=== PATIENT | female | born 1960 | race Caucasian/White ===

== ENCOUNTER 2021-09-18 19:18 | Inpatient (IN) ==
[2021-09-18 20:50] LABS: Red Blood Count 2.63 M/mcL (3.82-4.97)
[2021-09-18 20:52] LABS: Basophils # 0.1 K/mcL (0.0-0.2); Basophils % 0.6 %; Eosinophils # 0.1 K/mcL (0.0-0.6); Immature Granulocytes % 0.6 % (0-4); Lymphocytes # 1.6 K/mcL (0.6-4.6); Lymphocytes % 18.5 %; Mean Corpuscular HGB Conc 28.1 g/dL (31.6-35.5); Mean Corpuscular Hemoglobin 22.4 pg (28.0-33.3); Mean Corpuscular Volume 79.8 fL (83.0-100.0); Mean Platelet Volume 9.5 fL (9.4-12.4); Monocytes # 1.1 K/mcL (0.0-1.3); Monocytes % 12.7 %; Nucleated Red Blood Cells 1.1 /100 WBC (0); Platelet Count 269 K/mcL (140-400); Red Cell Distribution Width 17.2 % (11.5-14.5); Segmented Neutrophils % 66.6 %; White Blood Count 8.8 K/mcL (4.3-11.1)
[2021-09-18 20:54] LABS: Activated Partial Thrombo Time 50.9 Seconds (26.0-36.0)
[2021-09-18 20:55] LABS: Neutrophils # 5.9 K/mcL (1.6-8.9)
[2021-09-18 20:56] LABS: INR 6.1; Prothrombin Time 67.1 Seconds (9.4-12.1)
[2021-09-18 20:57] LABS: Hemoglobin 5.9 g/dL (11.5-15.4)
[2021-09-18 21:05] LABS: Potassium 4.3 mEq/L (3.5-5.1)
[2021-09-18] MEDS ORDERED: 0.9 % Sodium Chloride 500 ML IVC ONE (21:15)
[2021-09-18] MEDS ORDERED: Pantoprazole 40 MG VIAL IVP ONE ×2 (21:16→22:46)
[2021-09-18] MEDS ORDERED: 0.9 % Sodium Chloride 500 ML ONE (21:26)
[2021-09-18 21:27] LABS: Hypochromasia Present (Not Present); Microcytosis Present (Not Present); Platelet Estimate Normal (Normal)
[2021-09-18 21:35] LABS: Albumin 3.4 g/dL (3.5-5.7); Bilirubin,Indirect 1.4 mg/dL (0.0-1.0); Bilirubin,Total 2.4 mg/dL (0.3-1.0); Globulin 3.5 g/dL (2.4-3.5); Total Protein 6.9 g/dL (6.4-8.9)
[2021-09-18] MEDS ORDERED: Ondansetron 4 MG/2 ML VIAL IVP PRN (22:21)
[2021-09-18] MEDS ORDERED: Naloxone 0.4 MG/ML INJ IVP PRN (22:21)
[2021-09-18] MEDS ORDERED: D5% in Water 1,000 ML IVC PRN (22:30)
[2021-09-18] MEDS ORDERED: Dextrose Gel 15 GM/37.5 ML TUBE PO PRN ×2 (22:30)
[2021-09-18] MEDS: Pantoprazole 40 MG in 0.9 % Sodium Chloride Mini Bag 100 ML IVC SCH (23:00)
[2021-09-18] MEDS: Insulin LISPRO 300 UNITS/3 ML VIAL SUBQ SCH (23:01)
[2021-09-18] MEDS: *HR* Dextrose 50 % in Water (Syg) 50 ML SYRINGE IVP PRN ×2 (23:01→23:57)
[2021-09-18 23:36] LABS: Bilirubin,Urine Negative (Negative); Blood,Urine Negative (Negative); Clarity,Urine Clear (Clear); Color,Urine Light-Yellow (Yellow); Glucose,Urine (UA) Normal (Normal); Ketones,Urine Negative (Negative); Leukocyte Esterase,Urine Negative (Negative); Nitrite,Urine Negative (Negative); Protein,Urine Negative (Neg-Trace); Specific Gravity,Urine 1.012 (1.010-1.025); Urobilinogen,Urine Normal (Normal)
[2021-09-19] MEDS ORDERED: Ipratropium/Albuterol Neb 3 ML IH PRN (00:03)
[2021-09-19] MEDS: *HR* Dextrose 50 % in Water (Syg) 50 ML SYRINGE IVP PRN (01:23)
[2021-09-19] MEDS: Acetaminophen 325 MG TABLET PO PRN ×2 (01:35→19:54)
[2021-09-19 02:06] LABS: Activated Partial Thrombo Time 44.7 Seconds (26.0-36.0)
[2021-09-19 02:14] LABS: INR 4.6; Prothrombin Time 50.6 Seconds (9.4-12.1)
[2021-09-19 02:18] LABS: % Iron Saturation 38 % (15-50); Alanine Aminotransferase 5 Units/L (7-52); Albumin 3.1 g/dL (3.5-5.7); Albumin/Globulin Ratio 1.1 (1.1-2.2); Alkaline Phosphatase 124 Units/L (34-104); Aspartate Amino Transferase 15 Units/L (13-39); BUN/Creatinine Ratio 8 (6-26); Bilirubin,Direct 0.3 mg/dL (0.0-0.2); Bilirubin,Indirect 0.6 mg/dL (0.0-1.0); Bilirubin,Total 0.9 mg/dL (0.3-1.0); Blood Urea Nitrogen 23 mg/dL (8-23); Calcium 8.4 mg/dL (8.6-10.3); Carbon Dioxide 30 mEq/L (23-29); Chloride 100 mEq/L (98-107); Globulin 2.7 g/dL (2.4-3.5); Glucose 97 mg/dL (70-105); Iron 95 mcg/dL (50-170); Magnesium 1.8 mg/dL (1.6-2.6); Osmolality,Calculated 288 (280-300); Phosphorous 3.2 mg/dL (2.7-4.5); Potassium 4.2 mEq/L (3.5-5.1); Sodium 137 mEq/L (136-145); Total Protein 5.8 g/dL (6.4-8.9); Transferrin 179 mg/dL (203-362); eGFR For African Americans 19 (> 60); eGFR For Non-African Americans 16 (> 60)
[2021-09-19 02:30] LABS: Thyroid Stimulating Hormone 4.169 mcIU/mL (0.340-5.600)
[2021-09-19] MEDS ORDERED: Furosemide 40 MG/4 ML VIAL IVP ONE (02:49)
[2021-09-19 03:39] LABS: Ferritin > 1500 ng/mL (10-120)
[2021-09-19 03:39] LABS: Folate > 22.3 ng/mL (3.0-16.0); Vitamin B12 1337 pg/mL (250-1100)
[2021-09-19] MEDS: Pantoprazole 40 MG in 0.9 % Sodium Chloride Mini Bag 100 ML IVC SCH ×4 (04:17→19:45)
[2021-09-19 05:46] LABS: Eosinophils % 1.1 %; Hematocrit 21.7 % (35.3-44.9); Mean Corpuscular Volume 79.2 fL (83.0-100.0); Red Blood Count 2.74 M/mcL (3.82-4.97); Red Cell Distribution Width 16.7 % (11.5-14.5)
[2021-09-19 05:48] LABS: Basophils % 0.6 %; Eosinophils # 0.1 K/mcL (0.0-0.6); Hemoglobin 6.4 g/dL (11.5-15.4); Immature Granulocytes % 0.6 % (0-4); Lymphocytes # 1.3 K/mcL (0.6-4.6); Lymphocytes % 21.2 %; Mean Corpuscular HGB Conc 29.5 g/dL (31.6-35.5); Mean Corpuscular Hemoglobin 23.4 pg (28.0-33.3); Mean Platelet Volume 9.8 fL (9.4-12.4); Monocytes # 0.8 K/mcL (0.0-1.3); Monocytes % 12.8 %; Nucleated Red Blood Cells 1.3 /100 WBC (0); Platelet Count 207 K/mcL (140-400); Segmented Neutrophils % 63.7 %; White Blood Count 6.2 K/mcL (4.3-11.1)
[2021-09-19] MEDS ORDERED: 0.9 % Sodium Chloride 250 ML ONE (09:35)
[2021-09-19] MEDS: 0.9 % Sodium Chloride 1,000 ML IVC SCH ×2 (09:47→19:45)
[2021-09-19] MEDS: Insulin LISPRO 300 UNITS/3 ML VIAL SUBQ SCH ×3 (09:57→18:04)
[2021-09-19 15:15] LABS: Hematocrit 24.4 % (35.3-44.9)
[2021-09-19 15:18] LABS: Calcium 8.4 mg/dL (8.6-10.3); Potassium 3.6 mEq/L (3.5-5.1)
[2021-09-19] MEDS ORDERED: carvediloL 6.25 MG TABLET PO SCH (21:00)
[2021-09-20] MEDS: Pantoprazole 40 MG in 0.9 % Sodium Chloride Mini Bag 100 ML IVC SCH ×3 (00:23→12:28)
[2021-09-20] MEDS: Insulin LISPRO 300 UNITS/3 ML VIAL SUBQ SCH ×3 (06:50→15:44)
[2021-09-20 06:54] LABS: Basophils # 0.1 K/mcL (0.0-0.2); Basophils % 0.8 %; Eosinophils # 0.2 K/mcL (0.0-0.6); Eosinophils % 2.6 %; Hematocrit 25.1 % (35.3-44.9); Hemoglobin 7.3 g/dL (11.5-15.4); Immature Granulocytes % 0.3 % (0-4); Lymphocytes # 1.3 K/mcL (0.6-4.6); Lymphocytes % 21.9 %; Mean Corpuscular HGB Conc 29.1 g/dL (31.6-35.5); Mean Corpuscular Hemoglobin 23.8 pg (28.0-33.3); Mean Corpuscular Volume 81.8 fL (83.0-100.0); Mean Platelet Volume 9.6 fL (9.4-12.4); Monocytes # 0.7 K/mcL (0.0-1.3); Neutrophils # 3.8 K/mcL (1.6-8.9); Platelet Count 192 K/mcL (140-400); Red Blood Count 3.07 M/mcL (3.82-4.97); Red Cell Distribution Width 17.5 % (11.5-14.5); Segmented Neutrophils % 63.4 %; White Blood Count 6.1 K/mcL (4.3-11.1)
[2021-09-20 07:07] LABS: INR 1.8; Prothrombin Time 20.5 Seconds (9.4-12.1)
[2021-09-20 07:36] LABS: Calcium 8.3 mg/dL (8.6-10.3); Potassium 3.6 mEq/L (3.5-5.1)
[2021-09-20] MEDS: Folic Acid 1 MG TABLET PO SCH (08:05)
[2021-09-20] MEDS ORDERED: Lidocaine -MPF 2% 2 ML VIAL ONE (10:27)
[2021-09-20] MEDS ORDERED: *HR* Propofol 200 MG/20 ML VIAL IVP ONE (10:27)
[2021-09-20] MEDS ORDERED: Ketamine *HR* 500 MG/10 ML MDV ONE (10:29)
[2021-09-20] MEDS ORDERED: EPHEDrine 50 MG/ML VIAL ONE (11:23)
[2021-09-20 18:11] LABS: Hematocrit 26.7 % (35.3-44.9); Hemoglobin 7.6 g/dL (11.5-15.4)
[2021-09-21] MEDS: Acetaminophen 325 MG TABLET PO PRN (01:40)
[2021-09-21 06:47] LABS: Hematocrit 25.4 % (35.3-44.9)
[2021-09-21 06:48] LABS: Hemoglobin 7.2 g/dL (11.5-15.4); Mean Corpuscular HGB Conc 28.3 g/dL (31.6-35.5); Mean Corpuscular Hemoglobin 23.3 pg (28.0-33.3); Mean Corpuscular Volume 82.2 fL (83.0-100.0); Platelet Count 193 K/mcL (140-400); Red Blood Count 3.09 M/mcL (3.82-4.97); Red Cell Distribution Width 18.1 % (11.5-14.5); White Blood Count 6.9 K/mcL (4.3-11.1)
[2021-09-21 07:30] LABS: Calcium 8.2 mg/dL (8.6-10.3); Magnesium 2.3 mg/dL (1.6-2.6); Potassium 3.6 mEq/L (3.5-5.1)
[2021-09-21] MEDS: Insulin LISPRO 300 UNITS/3 ML VIAL SUBQ SCH ×3 (08:01→17:23)
[2021-09-21] MEDS: Folic Acid 1 MG TABLET PO SCH (09:20)
[2021-09-22 05:46] LABS: Mean Platelet Volume 9.4 fL (9.4-12.4); Red Blood Count 3.32 M/mcL (3.82-4.97); Red Cell Distribution Width 18.1 % (11.5-14.5)
[2021-09-22 05:47] LABS: Hematocrit 27.3 % (35.3-44.9); Hemoglobin 7.7 g/dL (11.5-15.4); Mean Corpuscular HGB Conc 28.2 g/dL (31.6-35.5); Mean Corpuscular Hemoglobin 23.2 pg (28.0-33.3); Mean Corpuscular Volume 82.2 fL (83.0-100.0); Platelet Count 210 K/mcL (140-400); White Blood Count 6.4 K/mcL (4.3-11.1)
[2021-09-22 05:53] LABS: INR 1.4; Prothrombin Time 16.1 Seconds (9.4-12.1)
[2021-09-22 06:15] LABS: BUN/Creatinine Ratio 18 (6-26); Blood Urea Nitrogen 18 mg/dL (8-23); Calcium 8.7 mg/dL (8.6-10.3); Carbon Dioxide 23 mEq/L (23-29); Chloride 102 mEq/L (98-107); Glucose 152 mg/dL (70-105); Osmolality,Calculated 277 (280-300); Potassium 4.1 mEq/L (3.5-5.1); Sodium 131 mEq/L (136-145); eGFR For African Americans > 60 (> 60); eGFR For Non-African Americans 55 (> 60)
[2021-09-22] MEDS: Insulin LISPRO 300 UNITS/3 ML VIAL SUBQ SCH ×3 (07:52→18:02)
[2021-09-22] MEDS: Folic Acid 1 MG TABLET PO SCH (12:36)
[2021-09-23] MEDS: Insulin LISPRO 300 UNITS/3 ML VIAL SUBQ SCH ×3 (07:50→16:55)
[2021-09-23] MEDS: Folic Acid 1 MG TABLET PO SCH (07:51)
[2021-09-23 10:34] LABS: Hematocrit 28.6 % (35.3-44.9); Hemoglobin 8.1 g/dL (11.5-15.4); Mean Corpuscular HGB Conc 28.3 g/dL (31.6-35.5); Mean Corpuscular Hemoglobin 23.2 pg (28.0-33.3); Mean Corpuscular Volume 81.9 fL (83.0-100.0); Platelet Count 202 K/mcL (140-400); Red Blood Count 3.49 M/mcL (3.82-4.97); Red Cell Distribution Width 17.9 % (11.5-14.5); White Blood Count 6.4 K/mcL (4.3-11.1)
[2021-09-23 11:37] LABS: BUN/Creatinine Ratio 17 (6-26); Blood Urea Nitrogen 17 mg/dL (8-23); Calcium 8.6 mg/dL (8.6-10.3); Carbon Dioxide 19 mEq/L (23-29); Chloride 104 mEq/L (98-107); Glucose 173 mg/dL (70-105); Osmolality,Calculated 276 (280-300); Potassium 5.5 mEq/L (3.5-5.1); Sodium 130 mEq/L (136-145); eGFR For African Americans > 60 (> 60); eGFR For Non-African Americans 55 (> 60)
[2021-09-23] MEDS ORDERED: 0.9 % Sodium Chloride 1,000 ML IVC SCH (11:45)
[2021-09-23] MEDS: *HR* Rivaroxaban 10 MG TABLET PO SCH (16:55)
[2021-09-23 18:24] LABS: BUN/Creatinine Ratio 18 (6-26); Blood Urea Nitrogen 18 mg/dL (8-23); Calcium 8.5 mg/dL (8.6-10.3); Carbon Dioxide 17 mEq/L (23-29); Chloride 106 mEq/L (98-107); Glucose 183 mg/dL (70-105); Osmolality,Calculated 277 (280-300); Sodium 130 mEq/L (136-145); eGFR For African Americans > 60 (> 60); eGFR For Non-African Americans 55 (> 60)
[2021-09-24] MEDS: Acetaminophen 325 MG TABLET PO PRN (00:54)
[2021-09-24 04:55] LABS: Hematocrit 27.4 % (35.3-44.9); Hemoglobin 7.7 g/dL (11.5-15.4); Mean Corpuscular HGB Conc 28.1 g/dL (31.6-35.5); Mean Corpuscular Hemoglobin 23.3 pg (28.0-33.3); Mean Corpuscular Volume 82.8 fL (83.0-100.0); Mean Platelet Volume 10.6 fL (9.4-12.4); Platelet Count 121 K/mcL (140-400); Red Blood Count 3.31 M/mcL (3.82-4.97); White Blood Count 5.8 K/mcL (4.3-11.1)
[2021-09-24 07:49] LABS: BUN/Creatinine Ratio 16 (6-26); Blood Urea Nitrogen 16 mg/dL (8-23); Calcium 8.5 mg/dL (8.6-10.3); Carbon Dioxide 22 mEq/L (23-29); Chloride 102 mEq/L (98-107); Glucose 193 mg/dL (70-105); Osmolality,Calculated 272 (280-300); Potassium 5.3 mEq/L (3.5-5.1); Sodium 128 mEq/L (136-145); eGFR For African Americans > 60 (> 60); eGFR For Non-African Americans 58 (> 60)
[2021-09-24] MEDS ORDERED: Furosemide 20 MG/2 ML VIAL IVP ONE (07:52)
[2021-09-24] MEDS ORDERED: Furosemide 20 MG TABLET PO ONE ×2 (07:53→17:00)
[2021-09-24] MEDS: Folic Acid 1 MG TABLET PO SCH (08:31)
[2021-09-24] MEDS: Insulin LISPRO 300 UNITS/3 ML VIAL SUBQ SCH ×3 (08:31→17:25)
[2021-09-24 14:42] LABS: BUN/Creatinine Ratio 16 (6-26); Blood Urea Nitrogen 16 mg/dL (8-23); Calcium 8.3 mg/dL (8.6-10.3); Carbon Dioxide 19 mEq/L (23-29); Chloride 106 mEq/L (98-107); Glucose 182 mg/dL (70-105); Osmolality,Calculated 276 (280-300); Potassium 5.5 mEq/L (3.5-5.1); Sodium 130 mEq/L (136-145); eGFR For African Americans > 60 (> 60); eGFR For Non-African Americans 54 (> 60)
[2021-09-24] MEDS ORDERED: SODIUM ZIRCONIUM CYCLOSILICATE 5 GM POWD.PACK PO ONE (15:13)
[2021-09-24] MEDS: *HR* Rivaroxaban 10 MG TABLET PO SCH (16:12)
[2021-09-24 20:58] LABS: BUN/Creatinine Ratio 16 (6-26); Blood Urea Nitrogen 16 mg/dL (8-23); Calcium 8.3 mg/dL (8.6-10.3); Carbon Dioxide 22 mEq/L (23-29); Chloride 102 mEq/L (98-107); Glucose 187 mg/dL (70-105); Osmolality,Calculated 276 (280-300); Potassium 4.6 mEq/L (3.5-5.1); Sodium 130 mEq/L (136-145); eGFR For African Americans > 60 (> 60); eGFR For Non-African Americans 58 (> 60)
[2021-09-25] MEDS ORDERED: tiZANidine 4 MG TABLET PO ONE (01:54)
[2021-09-25 05:59] LABS: Hematocrit 24.5 % (35.3-44.9); Hemoglobin 6.9 g/dL (11.5-15.4); Mean Corpuscular HGB Conc 28.2 g/dL (31.6-35.5); Mean Corpuscular Hemoglobin 23.2 pg (28.0-33.3); Mean Corpuscular Volume 82.2 fL (83.0-100.0); Platelet Count 175 K/mcL (140-400); Red Blood Count 2.98 M/mcL (3.82-4.97); Red Cell Distribution Width 17.6 % (11.5-14.5); White Blood Count 5.7 K/mcL (4.3-11.1)
[2021-09-25 06:24] LABS: Albumin 3.1 g/dL (3.5-5.7); BUN/Creatinine Ratio 18 (6-26); Blood Urea Nitrogen 16 mg/dL (8-23); Calcium 8.1 mg/dL (8.6-10.3); Carbon Dioxide 20 mEq/L (23-29); Chloride 103 mEq/L (98-107); Glucose 222 mg/dL (70-105); Osmolality,Calculated 274 (280-300); Potassium 5.1 mEq/L (3.5-5.1); Sodium 128 mEq/L (136-145); eGFR For African Americans > 60 (> 60); eGFR For Non-African Americans > 60 (> 60)
[2021-09-25] MEDS: Folic Acid 1 MG TABLET PO SCH (07:20)
[2021-09-25] MEDS: Insulin LISPRO 300 UNITS/3 ML VIAL SUBQ SCH ×2 (07:20→12:07)
[2021-09-25] MEDS ORDERED: 0.9 % Sodium Chloride 250 ML IVC SCH (07:45)
[2021-09-25] MEDS ORDERED: Furosemide 40 MG TABLET PO SCH (09:00)
[2021-09-25 10:27] VITALS: TEMP 97.4
[2021-09-25 12:56] LABS: Hemoglobin 8.7 g/dL (11.5-15.4)
[2021-09-25 13:33] LABS: BUN/Creatinine Ratio 18 (6-26); Blood Urea Nitrogen 16 mg/dL (8-23); Calcium 8.5 mg/dL (8.6-10.3); Carbon Dioxide 19 mEq/L (23-29); Chloride 102 mEq/L (98-107); Glucose 183 mg/dL (70-105); Osmolality,Calculated 274 (280-300); Potassium 5.1 mEq/L (3.5-5.1); Sodium 129 mEq/L (136-145); eGFR For African Americans > 60 (> 60); eGFR For Non-African Americans > 60 (> 60)
[2021-09-25 13:56] VITALS: BP 98/62; PULSE 60; O2SAT 100
[2021-09-25] MEDS ORDERED: Furosemide 20 MG TABLET PO ONE (17:00)
[2021-09-26] MEDS ORDERED: metOLazone 2.5 MG TABLET PO SCH (07:33)
== END 2021-09-25 16:46 | disposition home or self-care (01) | DRG 253 ==
LOC: EMEROOARM 19:18 → 2NENU 19:18 → SUATTDRO 22:21 → 2NENU 22:41 → 3BNU 09-20 22:39
PROVIDERS: ADMIT Internal Medicine; ATTEND Internal Medicine

== ENCOUNTER 2021-11-16 20:10 | Observation (INO) ==
[2021-11-16 21:57] LABS: Alanine Aminotransferase 11 Units/L (7-52); Albumin 3.8 g/dL (3.5-5.7); Alkaline Phosphatase 137 Units/L (34-104); Aspartate Amino Transferase 22 Units/L (13-39); BUN/Creatinine Ratio 26 (6-26); Bilirubin,Direct 0.9 mg/dL (0.0-0.2); Bilirubin,Indirect 1.5 mg/dL (0.0-1.0); Bilirubin,Total 2.4 mg/dL (0.3-1.0); Blood Urea Nitrogen 48 mg/dL (8-23); Calcium 8.9 mg/dL (8.6-10.3); Carbon Dioxide 26 mEq/L (23-29); Chloride 102 mEq/L (98-107); Globulin 3.8 g/dL (2.4-3.5); Glucose 166 mg/dL (70-105); Lipase 24 Units/L (11-82); Magnesium 2.5 mg/dL (1.6-2.6); Osmolality,Calculated 302 (280-300); Phosphorous 4.8 mg/dL (2.7-4.5); Potassium 3.2 mEq/L (3.5-5.1); Sodium 138 mEq/L (136-145); Total Protein 7.6 g/dL (6.4-8.9); Troponin I < 0.03 ng/mL (< 0.04)
[2021-11-16 21:58] LABS: Immature Granulocytes % 0.2 % (0-4)
[2021-11-16 21:59] LABS: Basophils % 0.8 %; Eosinophils # 0.2 K/mcL (0.0-0.6); Eosinophils % 4.1 %; Hematocrit 34.3 % (35.3-44.9); Hemoglobin 9.3 g/dL (11.5-15.4); Lymphocytes # 1.1 K/mcL (0.6-4.6); Lymphocytes % 22.6 %; Mean Corpuscular HGB Conc 27.1 g/dL (31.6-35.5); Mean Corpuscular Hemoglobin 21.3 pg (28.0-33.3); Mean Corpuscular Volume 78.5 fL (83.0-100.0); Mean Platelet Volume 9.6 fL (9.4-12.4); Monocytes # 0.5 K/mcL (0.0-1.3); Monocytes % 10.5 %; Platelet Count 256 K/mcL (140-400); Red Blood Count 4.37 M/mcL (3.82-4.97); Red Cell Distribution Width 23.3 % (11.5-14.5); Segmented Neutrophils % 61.8 %; White Blood Count 4.9 K/mcL (4.3-11.1)
[2021-11-16 22:37] LABS: Anisocytosis 3+ (Not Present)
[2021-11-16 22:38] LABS: Hypochromasia Present (Not Present); Stomatocytes 1+ (Not Present)
[2021-11-16 23:23] LABS: Bilirubin,Urine Negative (Negative); Blood,Urine Negative (Negative); Clarity,Urine Clear (Clear); Color,Urine Light-Yellow (Yellow); Glucose,Urine (UA) Normal (Normal); Ketones,Urine Negative (Negative)
[2021-11-16 23:24] LABS: Leukocyte Esterase,Urine Negative (Negative); Nitrite,Urine Negative (Negative); Protein,Urine Negative (Neg-Trace); Urobilinogen,Urine Normal (Normal)
[2021-11-16 23:26] LABS: Bacteria,Urine Few per hpf (None-Few); Hyaline Casts,Urine Many per lpf (None Seen); Mucus,Urine Few per lpf (None-Few); RBC,Urine 0-3 per hpf (0-3); Squamous Epithelial Cell,Urine Few per hpf (None-Few); WBC,Urine 0-3 per hpf (0-3)
[2021-11-17 00:08] LABS: Sodium, Urine 29.9 mEq/L
[2021-11-17] MEDS ORDERED: Melatonin 3 MG TABLET PO PRN (00:54)
[2021-11-17] MEDS ORDERED: Ondansetron ODT 4 MG TAB.RAPDIS SL PRN (00:54)
[2021-11-17] MEDS ORDERED: Naloxone 0.4 MG/ML INJ IVP PRN (00:54)
[2021-11-17] MEDS ORDERED: *HR* Dextrose 50 % in Water (Syg) 50 ML SYRINGE IVP PRN (01:09)
[2021-11-17] MEDS ORDERED: Dextrose Gel 15 GM/37.5 ML TUBE PO PRN ×2 (01:09)
[2021-11-17] MEDS ORDERED: D5% in Water 1,000 ML IVC PRN (01:09)
[2021-11-17 03:17] LABS: Monocytes % 10.8 %
[2021-11-17 03:19] LABS: Basophils # 0.1 K/mcL (0.0-0.2); Basophils % 1.1 %; Eosinophils # 0.2 K/mcL (0.0-0.6); Eosinophils % 4.1 %; Hemoglobin 8.9 g/dL (11.5-15.4); Immature Granulocytes % 0.5 % (0-4); Lymphocytes # 1.1 K/mcL (0.6-4.6); Lymphocytes % 25.7 %; Mean Corpuscular Hemoglobin 21.1 pg (28.0-33.3); Mean Corpuscular Volume 78.4 fL (83.0-100.0); Mean Platelet Volume 9.3 fL (9.4-12.4); Monocytes # 0.5 K/mcL (0.0-1.3); Neutrophils # 2.5 K/mcL (1.6-8.9); Platelet Count 239 K/mcL (140-400); Red Blood Count 4.21 M/mcL (3.82-4.97); Red Cell Distribution Width 23.2 % (11.5-14.5); Segmented Neutrophils % 57.8 %; White Blood Count 4.4 K/mcL (4.3-11.1)
[2021-11-17 03:27] LABS: INR 3.1; Prothrombin Time 34.6 Seconds (9.4-12.1)
[2021-11-17 03:34] LABS: Albumin 3.7 g/dL (3.5-5.7); Bilirubin,Total 2.3 mg/dL (0.3-1.0); Globulin 3.7 g/dL (2.4-3.5); Magnesium 2.4 mg/dL (1.6-2.6); Phosphorous 4.8 mg/dL (2.7-4.5); Potassium 2.8 mEq/L (3.5-5.1); Total Protein 7.4 g/dL (6.4-8.9)
[2021-11-17 04:05] LABS: Anisocytosis 2+ (Not Present); Hypochromasia Present (Not Present)
[2021-11-17 04:06] LABS: Macrocytosis Present (Not Present); Platelet Estimate Normal (Normal); Target Cells 1+ (Not Present)
[2021-11-17] MEDS: *HR* Heparin 5,000 UNIT/ML VIAL SQ SCH ×2 (05:04→14:23)
[2021-11-17 05:16] LABS: Potassium,Urine 89.6 mEq/L
[2021-11-17] MEDS ORDERED: Acetaminophen 325 MG TABLET PO PRN (08:08)
[2021-11-17 08:11] LABS: Protein/Creatinine Ratio,Urine 0.09 mg/mg (0.00-0.20)
[2021-11-17] MEDS: Insulin LISPRO 300 UNITS/3 ML VIAL SUBQ SCH ×3 (09:03→17:15)
[2021-11-17] MEDS: Nystatin Ointment 15 GM TUBE TP SCH ×3 (09:06→17:16)
[2021-11-17 10:42] LABS: Calcium 9.1 mg/dL (8.6-10.3); Potassium 3.4 mEq/L (3.5-5.1)
[2021-11-17] MEDS ORDERED: Furosemide 40 MG/4 ML VIAL IVP SCH (11:15)
[2021-11-17 11:32] LABS: Complement C3 100 mg/dL (87-200)
[2021-11-17 12:10] VITALS: O2SAT 100
[2021-11-17 14:55] LABS: Creatinine,Urine 25 mg/dL; Microalbumin,Urine < 7 mg/L; Protein/Creatinine Ratio,Urine 0.16 mg/mg (0.00-0.20)
[2021-11-17] MEDS ORDERED: hydrOXYzine pamoate 25 MG CAPSULE PO PRN (15:02)
[2021-11-17 15:54] VITALS: BP 96/44; PULSE 90; TEMP 96.8
[2021-11-17] MEDS ORDERED: Albumin 25% 25gram/100mL 25 GM/100 ML IV.SOLN IVPB SCH (16:00)
[2021-11-17] MEDS ORDERED: Insulin LISPRO 300 UNITS/3 ML VIAL SUBQ SCH (21:00)
== END 2021-11-17 18:50 | disposition short-term general hospital (02) ==
LOC: EMEROOARM 20:10 → 2NENU 20:10 → SUATTDRO 23:32 → 2NENU 11-17 01:14
PROVIDERS: ADMIT Internal Medicine; ATTEND Internal Medicine